=== PATIENT | male | born 1975 | race Caucasian/White ===

== ENCOUNTER 2022-10-07 18:30 | Outpatient (CLI) | payer BC, SELFPAY ==
[2022-10-08 16:05] LABS: Chloride* 104 mmol/L (96-114); Sodium* 140 mmol/L (135-149)
[2022-10-08 16:08] LABS: Blood Urea Nitrogen* 11 mg/dL (5-24); Calcium* 8.9 mg/dL (8.4-10.6); Carbon Dioxide* 27 mmol/L (20-32); Creatinine* 0.8 mg/dL (0.5-1.5); Estimated Glomerular Filt Rate 111 ml/min; Glucose* 89 mg/dL (60-115); Potassium* 3.7 mmol/L (3.6-5.1)
== END 2022-10-07 18:31 | disposition home or self-care (01) ==
LOC: LKVREF 18:31
PROVIDERS: PCP Emergency Medicine; Visit Provider Emergency Medicine
DX: R03.0 Elevated blood-pressure reading, without diagnosis of hypertension (principal)
CPT/HCPCS: 80048

== ENCOUNTER 2023-01-28 10:11 | Outpatient (CLI) | payer BC, SELFPAY | END 2023-01-28 10:12 | disposition home or self-care (01) | LOC: LKVREF 10:15 | PROVIDERS: PCP Emergency Medicine; Visit Provider Emergency Medicine | DX: I10 Essential (primary) hypertension (principal); R53.83 Other fatigue; R79.89 Other specified abnormal findings of blood chemistry; R60.0 Localized edema; N52.9 Male erectile dysfunction, unspecified | CPT/HCPCS: 80048; 84270; 84402; 84403 ==

== ENCOUNTER 2023-02-22 19:47 | Outpatient (CLI) | payer BC, SELFPAY ==
--- NOTE | 2023-03-03 12:41 | W.PM.SLEEP ---
Sleep Study Details Details Interpreting Provider: Eli Date of Sleep Study: 02/22/23 Sleep Study Details: STUDY TYPE:? Home unattended ? BMI:? 38.7 ORDERING PROVIDER:Yasmeen Worley INDICATION:? Concerns about sleep apnea ? SLEEP SUMMARY:? 239.8 minutes monitored RESPIRATORY SUMMARY:? AHI 97.6 Low oxygen 69 49.1% of study oxygen less than 90% Snoring 18.7% PERIODIC LIMB MOVEMENTS OF SLEEP:? Not recorded during home study CARDIAC:? Range 35-115, mean 82.5 IMPRESSION:? Bradycardia was noted during the study with a heart rate as low as 35. Further cardiopulmonary evaluation may be indicated Severe obstructive sleep apnea with significant hypo oxygenation RECOMMENDATION: Would recommend an in-lab titration study for this patient
== END 2023-02-22 19:48 | disposition home or self-care (01) ==
LOC: SLEEP 19:47
PROVIDERS: PCP Emergency Medicine; Visit Provider Emergency Medicine
DX: G47.33 Obstructive sleep apnea (adult) (pediatric) (principal)
CPT/HCPCS: 95806

== ENCOUNTER 2023-02-27 07:57 | Outpatient (CLI) | payer BC, SELFPAY | END 2023-02-27 07:58 | disposition home or self-care (01) | LOC: RAD 07:59 | PROVIDERS: PCP Emergency Medicine; Visit Provider Emergency Medicine | DX: R60.0 Localized edema (principal) | CPT/HCPCS: 93306 ==

== ENCOUNTER 2023-04-29 08:42 | Outpatient (CLI) | payer BC, SELFPAY | END 2023-04-29 08:43 | disposition home or self-care (01) | LOC: NFLDREF 04-30 10:47 | PROVIDERS: PCP Emergency Medicine; Referring Provider Emergency Medicine; Visit Provider Emergency Medicine | DX: R79.89 Other specified abnormal findings of blood chemistry (principal); I10 Essential (primary) hypertension; Z12.5 Encounter for screening for malignant neoplasm of prostate | CPT/HCPCS: 83001; 83002; 84153; 84403 ==

== ENCOUNTER 2023-08-24 07:48 | Outpatient (CLI) | payer BC, MEDICAID, SELFPAY | END 2023-08-24 07:49 | disposition home or self-care (01) | LOC: RAD 07:49 | PROVIDERS: PCP Emergency Medicine; Visit Provider Family Medicine | DX: I49.9 Cardiac arrhythmia, unspecified (principal); Z87.898 Personal history of other specified conditions | CPT/HCPCS: 93225; 93226 ==

== ENCOUNTER 2024-05-25 18:21 | Emergency (ER) | payer OTHER, MEDICARE, SELFPAY ==
[2024-05-25] VITALS (19 sets, daily range): BP systolic 99–142; BP diastolic 67–98; PULSE 86–111; RESP 16–22; TEMP 36.2; O2SAT 88–94; BMI 34.3
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
--- NOTE | 2024-05-25 18:46 | CRLHL7_ITS ---
For Patients: As a result of the Century Cures Act, medical imaging exams and procedure reports are released immediately into your electronic medical record. You may view this report before your referring provider. If you have questions, please contact your health care provider. INDICATION: Right arm swelling and pain. TECHNIQUE: Ultrasound venous duplex upper right extremity. Compression venous exam was performed using best-scale, color Doppler, and spectral Doppler imaging. COMPARISON: Chest CT PE protocol from the same day. FINDINGS: There is acute thrombus within the right internal jugular , brachiocephalic, subclavian, axillary, brachial, and basilic veins. Thrombus within the proximal cephalic vein. Possible thrombus within the proximal radial and ulnar veins to the mid forearm. The contralateral internal jugular vein is patent. Subcutaneous edema noted in the right upper extremity. IMPRESSION: Extensive right upper extremity deep venous thrombosis, primarily involving the right internal jugular, brachiocephalic, subclavian, axillary, brachial, and basilic veins. Findings discussed with Dr. Mccarty at 7:40 PM PST on 05/25/2024. Dictated by Miky Ayuob MD @ 05/25/2024 9:36:29 PM (Electronically Signed)
--- NOTE | 2024-05-25 18:46 | CRLHL7_ITS ---
For Patients: As a result of the Century Cures Act, medical imaging exams and procedure reports are released immediately into your electronic medical record. You may view this report before your referring provider. If you have questions, please contact your health care provider. INDICATION: Right arm pain/swelling, right neck pain/swelling. TECHNIQUE: CT of the chest acquired with 95 cc Isovue 370 IV contrast according to the PE protocol. Coronal and sagittal reconstructions. COMPARISON: Chest radiograph 04/25/2023. FINDINGS: Cardiovascular structures: Mild cardiomegaly. Normal caliber thoracic aorta and central pulmonary arteries. There are acute pulmonary emboli within segmental and subsegmental branches of the right lower lobe and left upper lobe. Possible subsegmental emboli in the left lower lobe. The RV/LV ratio measures 1.0 which could indicate mild right heart strain. The venous structures are suboptimally evaluated due to phase of contrast, however there appears to be a filling defect in the SVC suggesting thrombus. Mediastinum and erin: Mildly prominent mediastinal and right hilar lymph nodes may be reactive. Fat stranding in the right upper mediastinum. No pericardial effusion. Lungs and pleura: There are ovoid pleural-based consolidations in the posterior right lower lobe with central lucency suspicious for pulmonary infarcts. Bibasilar dependent atelectasis. No pleural effusion or pneumothorax. 2 mm noncalcified pulmonary nodule in the right upper lobe (series 5, image 75). No central endobronchial lesion or significant bronchial wall thickening. Chest wall: Mildly prominent right axillary and right supraclavicular lymph nodes. Fat stranding in the right axilla, right supraclavicular region, and right upper anterior chest wall. Upper abdomen: Unremarkable. Bones: Old fracture of the right lateral 7th rib IMPRESSION: 1. Acute pulmonary emboli within segmental and subsegmental branches bilaterally. Overall mild clot burden. Possible mild right heart strain. 2. Ovoid pleural-based consolidations in the right lower lobe suspicious for pulmonary infarcts. 3. Fat stranding in the right upper mediastinum, right axilla, and right lower neck with possible filling defect in the SVC. Recommend further evaluation with right upper quadrant venous ultrasound to evaluate for thrombus. 4. Findings discussed with Tsering Mccarty at 8:13 p.m. on 05/25/2024. Please note that all CT scans at this facility use dose modulation, iterative reconstruction, and/or weight-based dosing when appropriate to reduce radiation dose to as low as reasonably achievable. Dictated by Estefani Avila MD @ 05/25/2024 8:15:01 PM (Electronically Signed)
[2024-05-25] MEDS: MORPHINE 4 MG/ML INJ IVP (19:08)
[2024-05-25] MEDS: ONDANSETRON 2 MG/ML inj 4 MG IVP (19:08)
[2024-05-25 19:09] LABS: Basophils Percent Auto 0.5 % (0.0-3.0); Hematocrit 51.2 % (37.0-53.0); Hemoglobin* 16.6 gm/dL (13.5-17.5); Immature Granulocytes Pct Auto 0.5 %; Lymphocytes Percent Auto 10.1 % (20-44); Mean Corpuscular HGB Conc 32 gm/dL (32-36); Mean Corpuscular Hemoglobin 27 pg (26-34); Mean Corpuscular Volume 84 fL (80-100); Monocytes Percent Auto 8.6 % (0.0-11.0); Neutrophils Percent Auto 79.3 % (42.0-72.0); Platelet Count* 180 K/uL (140-440); RDW Coefficient of Variation % 13.1 % (11.5-15.5); Red Blood Count 6.12 m/uL (4.30-5.90); White Blood Count* 11.91 K/uL (4.50-11.00)
[2024-05-25 19:27] LABS: Slide Review Reflex No
[2024-05-25 19:30] LABS: Albumin* 4.2 g/dL (3.3-5.0); Chloride* 91 mmol/L (96-114); Sodium* 130 mmol/L (135-149)
[2024-05-25 19:31] LABS: Potassium* 4.1 mmol/L (3.6-5.1)
[2024-05-25 19:33] LABS: Alkaline Phosphatase* 128 U/L (40-150); Anion Gap 7 mEq/L (7-15); Aspartate Amino Transferase* 16 U/L (12-35); Bilirubin Total* 0.9 mg/dL (0.1-1.5); Carbon Dioxide* 32 mmol/L (20-32); Creatinine* 0.7 mg/dL (0.5-1.5); Est. Creatinine Clearance* 147.43; Estimated Glomerular Filt Rate 114 ml/min; Total Protein* 7.4 g/dL (6.0-8.3)
[2024-05-25 19:34] LABS: Alanine Aminotransferase* 17 U/L (4-50); Blood Urea Nitrogen* 14 mg/dL (5-24); Calcium* 9.3 mg/dL (8.4-10.6)
[2024-05-25 19:36] LABS: C Reactive Protein* 7.6 mg/dL (0.5-1.0)
[2024-05-25 19:37] LABS: Glucose* 446 mg/dL (60-115)
[2024-05-25 20:12] LABS: NT Pro B Type NatriureticPept* < 20 pg/mL; Troponin I* < 0.01 ng/mL (0.01-0.04)
[2024-05-25] MEDS: ACETAMINOPHEN 500 MG TABLET 1000 MG PO (21:04)
[2024-05-25] MEDS: HYDROmorphone 0.5 mg/0.5 ml inj IVP ×2 (21:05→23:14)
[2024-05-25] MEDS: HEPARIN 5,000 UNIT/0.5 ML INJ 9400 UNIT IVP (22:13)
[2024-05-25] MEDS: HEPARIN 25,000 UNIT/500 ML BAG 30 UNIT IV (22:17)
[2024-05-25] MEDS: INSULIN REGULAR, HUMAN 100 UNIT/ML VIAL 10 UNIT IVP (22:53)
[2024-05-25 23:17] LABS: INR 0.98 (0.91-1.10); Partial Thromboplastin Time* 29 Seconds (23-33); Prothrombin Time 13.6 Seconds
[2024-05-26] VITALS (10 sets, daily range): BP systolic 97–112; BP diastolic 65–73; PULSE 83–103; O2SAT 85–95
[2024-05-26] MEDS: HYDROmorphone 0.5 mg/0.5 ml inj IVP (01:28)
== END 2024-05-26 01:37 | disposition home or self-care (01) ==
PROVIDERS: Emergency Provider Family Medicine; PCP Emergency Medicine
DX: I26.99 Other pulmonary embolism without acute cor pulmonale (principal); I82.621 Acute embolism and thrombosis of deep veins of right upper extremity; E11.9 Type 2 diabetes mellitus without complications
CPT/HCPCS: 36415; 71275; 80053; 83880; 84484; 85025; 85027; 85379; 85610; 85730; 86140; 93005; 93971; 94761; 96374; 96375; 99285; A9270; J1171; J1644; J1815; J1885; J2270; J2405; Q9967

== ENCOUNTER 2024-05-26 01:20 | Outpatient (CLI) | payer OTHER, MEDICARE, SELFPAY | END 2024-05-26 01:21 | disposition home or self-care (01) | PROVIDERS: PCP Emergency Medicine; Visit Provider Family Medicine | DX: R22.31 Localized swelling, mass and lump, right upper limb (principal); R20.0 Anesthesia of skin | CPT/HCPCS: A0425; A0434 ==